=== PATIENT | female | born 1975 | race Caucasian/White ===

== ENCOUNTER 2024-06-14 21:48 | Emergency (ER) | payer BC ==
[2024-06-14] MEDS: cefTRIAXone 1 GM, Lidocaine 1% 2.1 ML IM ONE (22:44)
[2024-06-14] MEDS: Diphtheria,Pertussis(Acell),Tetanus Vaccine 0.5 ML Syringe IM ONE (22:45)
== END 2024-06-14 22:49 | disposition home or self-care (01) ==
LOC: JD.ED 21:48
DX: T23.212A Burn of second degree of left thumb (nail), initial encounter (principal); L03.012 Cellulitis of left finger; Z86.16 Personal history of COVID-19; Z79.899 Other long term (current) drug therapy; Z88.0 Allergy status to penicillin; Z88.1 Allergy status to other antibiotic agents; Z23 Encounter for immunization; X19.XXXA Contact with other heat and hot substances, initial encounter
CPT/HCPCS: 90471; 90715; 96372; 99283; J0696; J3490